=== PATIENT | female | born 1980 | race African-American/Black ===

== ENCOUNTER 2018-04-19 08:24 | Emergency (ER) | payer OTHER ==
[~2018-04-19 08:24] MED LIST: CYCLOBENZAPRINE10 M1 PO; IBUPROFEN800 M1 PO
[2018-04-19 11:58] VITALS: BP 118/83
--- NOTE | 2018-04-19 12:15 | ULTRASOUND REPORT ---
EXAMINATION: Ultrasound of , less than 14 weeks. INDICATION: 38-year-old female with abdominal cramping, positive . Pelvic ultrasound done earlier on 04/17/2018 showed no definite pole. For follow-up. TECHNIQUE: Real-time ultrasound of was performed with grayscale appearance and color Doppler flow. COMPARISON: Pelvic ultrasound done on 04/17/2018. FINDINGS: As was documented on the prior study done the day before yesterday there is intrauterine gestational sac identified, currently measures 2.6 x 1.0 x 2.0 cm with a mean sac diameter of 1.78 (previously measured 1.71 cm done 48 hours ago). Intrauterine gestational sac echogenic material is identified similar to prior study without any definite York sac or definite pole. There is no perigestational hemorrhage present. The cervix is closed. The right ovary measures 2.3 x 2.3 x 2.0 cm, morphologically appear unremarkable without evidence of any dominant follicle or corpus luteum. The arterial as well as venous flow to the right ovary are well-maintained. No change. The left ovary is not visualized. There is no left-sided adnexal mass present. No change. No free fluid. IMPRESSION: No significant change since prior study dated 04/17/2018. Specifically, no definite evidence of any York sac or pole identified within the presumed intrauterine gestational sac. Correlation with serial serum beta-hCG level as well as follow-up ultrasound as appropriate is recommended for further differentiation between missed versus very early otherwise normal intrauterine .
--- NOTE | 2018-04-19 12:51 | ED GENERAL ADULT ---
History of Present Illness General Chief Complaint: General Adult Stated Complaint: SENT IN FOR REPEAT BLD WORK AND US Source: patient Exam Limitations: no limitations Vital Signs & Intake/Output Vital Signs & Intake/Output Vital Signs Date Time Temp Pulse Resp B/P B/P Pulse O2 O2 Flow FiO2 Mean Ox Delivery Rate 04/19 1158 99.0 83 16 118/83 100 Room Air 04/19 0831 98.6 95 18 131/86 99 Room Air Allergies Coded Allergies: No Known Allergies (09/22/17) Reconcile Medications No Known Home Medications Triage Note: 38F RETURNS TO ED FOR SECOND SERIES OF HCG AND U/S. WAS SEEN TWO DAYS AGO AND HAD U/S WHICH DEMONSTRATED AN UNIDENTIFIABLE POLE WITH RECOMMENDATION FOR REPEAT U/S IN 7-10 DAYS. 12/06/18 Triage Nurses Notes Reviewed? yes : Yes Patient currently breastfeeds: No HPI: 38-year-old female returns for repeat hCG and ultrasound. Presented 2 days prior had a hCG of 1700 and an ultrasound was performed that showed a yolk sac without a pole. No other signs symptoms or complaints per Past History Travel History Traveled to [place] past 21 day No Medical History Any Pertinent Medical History? see below for history Neurological: NONE EENT: NONE Cardiovascular: hypertension Respiratory: NONE Gastrointestinal: NONE Hepatic: NONE Renal: NONE Musculoskeletal: NONE Psychiatric: NONE Endocrine: PRE-DIABETES Blood Disorders: NONE Cancer(s): NONE [place] [employer] END/Reproductive: NONE Surgical History Surgical History: LEFT TUBAL REMOVAL AFTER ECTOPIC Psychosocial History What is your primary language Luxembourgish Tobacco Use: Never used Family History Hx Contributory? No Review of Systems Review of Systems Constitutional: Reports: no symptoms, see HPI. EENTM: Reports: no symptoms. Respiratory: Reports: no symptoms. Cardiovascular: Reports: no symptoms. GI: Reports: no symptoms. Genitourinary: Reports: no symptoms. Musculoskeletal: Reports: no symptoms. Skin: Reports: no symptoms. Neurological/Psychological: Reports: no symptoms. Hematologic/Endocrine: Reports: no symptoms. Immunologic/Allergic: Reports: no symptoms. All Other Systems: Reviewed and Negative Physical Exam Physical Exam General Appearance: well developed/nourished, no apparent distress, comfortable Comments: Gen.: Well-nourished, well-developed, no acute respiratory distress. Head: Normocephalic, atraumatic. Eyes: Normal inspection bilaterally Ears: Normal inspection bilaterally Nose: Normal inspection Throat/mouth : Moist mucosa Neck: Supple, full range of motion, no goiter Heart: Regular rate and rhythm, no murmurs rubs or gallops Lungs: Clear to auscultation bilaterally with normal air entry Chest: Nontender Back: Normal range of motion Abdomen: Soft, nontender, nondistended, normal bowel sounds Extremities: Normal range of motion grossly, equal radial pulses, no cyanosis clubbing or edema Neurologic: Cranial nerves grossly intact, speech is clear Skin: warm and dry Psychiatric: Calm, cooperative, no apparent delusions or hallucinations Core Measures ACS in differential dx? No CVA/TIA Diagnosis: No Sepsis Present: No Sepsis Focused Exam Completed? No Progress Differential Diagnoses I considered the following diagnoses in my evaluation of the patient: Intrauterine versus nonviable . Plan of Care: Orders Procedure Date/time Status HUMAN BETA HCG TITRE 04/19 0834 Complete Laboratory Tests 04/19/18 0843: Beta HCG, Quant 11298.0 Initial ED EKG: none Departure Departure Disposition: HOME OR SELF CARE Condition: Stable Clinical Impression Primary Impression: Intrauterine Referrals: Radha WOLF,Pierce Muñiz (PCP/Family) Departure Forms: Customer Survey General Discharge Information Prescriptions: Current Visit Scripts No Known Home Medications Comments Please note that there might be incidental findings in your evaluation that are unrelated to the current emergency department visit. Please notify your primary care doctor about this emergency department visit in order to obtain and review all of the testing performed so that these incidental findings can be monitored as needed. If you had an x-ray performed, please understand that some fractures may not be seen on the initial set of x-rays. If your symptoms persist you might need a repeat set of x-rays to check for such a fracture. If you had a laceration evaluated, please understand that foreign bodies such as glass or wood may not be visible to the naked eye or on plain x-rays. If the wound becomes red, swollen, increasingly more painful or if there is any drainage from the wound, please have it reevaluated by a physician for the possibility of a retained foreign body. If you're unable to follow up as outlined in the discharge instructions please return to the emergency department. Procedures Ultrasound Ultrasound: Transabd pelvic US Progress: IUP, both yolk sack and pole visualized. Critical Care Note Critical Care Note Critical Care Time: non-applicable
== END 2018-04-19 13:08 ==
LOC: ERH 08:24
DX: Z32.01 Encounter for pregnancy test, result positive (principal)
CPT/HCPCS: 76817